=== PATIENT | female | born 1965 | race Caucasian/White ===

== ENCOUNTER 2023-10-18 11:45 | Emergency (ER) | payer BC ==
[2023-10-18] MEDS ORDERED: HYDROCODONE/APAP 7.5/325 MG TAB ONE (12:19)
[2023-10-18] MEDS ORDERED: KETOROLAC 30 MG/ML INJ ONE (12:19)
--- NOTE | 2023-10-18 13:13 | RAD REPORT ---
EXAM DESCRIPTION: RAD - Hip Right 2 View - 10/18/2023 12:42 pm CLINICAL HISTORY: Right hip pain FINDINGS: No fracture or dislocation is seen. If the patient continues to have symptoms to suggest an occult fracture then MRI would be recommended
--- NOTE | 2023-10-18 13:15 | RAD REPORT ---
EXAM DESCRIPTION: RAD - Knee Right 3 View - 10/18/2023 12:42 pm CLINICAL HISTORY: Right knee pain status post injury FINDINGS: No fracture or dislocation is seen. Mild to moderate osteoarthritis compartment. Prominent patellofemoral osteoarthritis
--- NOTE | 2023-10-18 13:19 | ER ---
Nurse's Notes [facility] Name: Vesna Ruelas Age: 58 yrs Sex: Female : 1965 Arrival Date: 10/18/2023 Time: 11:45 Bed 11 Private MD: Diagnosis: Pain in right knee Presentation: 10/17 12:12 Chief complaint: Patient states: she fell yesterday when taking her dogs out, and ap3 hyperextended her right knee. patient states she has a pain of 9/10 on the pain scale at this time. Coronavirus screen: At this time, the client does not indicate any symptoms associated with coronavirus-19. Ebola Screen: No symptoms or risks identified at this time. Initial Sepsis Screen: Does the patient meet any 2 criteria? No. Patient's initial sepsis screen is negative. Does the patient have a suspected source of infection? No. Patient's initial sepsis screen is negative. Risk Assessment: Do you want to hurt yourself or someone else? Patient reports no desire to harm self or others. Onset of symptoms was October 17, 2023. 12:12 Method Of Arrival: Wheelchair ap3 12:12 Acuity: SHIRA 4 ap3 Triage Assessment: 12:14 General: Appears uncomfortable, Behavior is calm, cooperative, appropriate for age. ap3 Pain: Complains of pain in right knee Pain currently is 9 out of 10 on a pain scale. Neuro: Level of Consciousness is awake, alert, obeys commands, Oriented to person, place, time, situation, Appropriate for age. Cardiovascular: Patient's skin is warm and dry. Respiratory: Airway is patent Respiratory effort is even, unlabored, Respiratory pattern is regular, symmetrical. Musculoskeletal: Reports pain in right knee. Historical: - Allergies: 12:13 No Known Allergies; ap3 - PMHx: 12:13 Irritable bowel syndrome; ap3 - Immunization history:: Client reports receiving the 2nd dose of the Covid vaccine, Flu vaccine is up to date. - Social history:: Smoking status: Patient denies any tobacco usage or history of. Screenin:14 [facility] ED Fall Risk Assessment (Adult) History of falling in the last 3 months, ap3 including since admission Yes- single mechanical fall (1 pt) Confusion or Disorientation No (0 pts) Intoxicated or Sedated No (0 pts) Impaired Gait Yes (1 pt) Mobility Assist Device Used No (0 pt) Altered Elimination No (0 pt) Score/Fall Risk Level 0 - 2 = Low Risk Oriented to surroundings, Maintained a safe environment, Educated pt \T\ family on fall prevention, incl call for assistance when getting out of bed, Assessed \T\ reinforced patient's understanding of fall precautions, Provided non-skid footwear, Hourly rounding (assess needs \T\ fall precautionary measures) done, Used ambulatory aids as needed (educated on \T\ assisted with), Used gait belt as appropriate. Abuse screen: Denies threats or abuse. Nutritional screening: No deficits noted. Tuberculosis screening: No symptoms or risk factors identified. Vital Signs: 12:12 BP 116 / 74; Pulse 74; Resp 17; Temp 98.8; Pulse Ox 100% ; Weight 95.25 kg; Height 5 ap3 ft. 10 in. ; Pain 9/10; 12:12 Body Mass Index 30.13 (95.25 kg, 177.8 cm) ap3 12:12 Pain Scale: Adult ap3 ED Course: 11:48 Patient arrived in ED. mg5 11:52 Yaneth Garcia FNP-C [facility]. kb 11:52 Anup Grullon MD is Attending Physician. kb 12:13 Triage completed. ap3 12:15 Arm band placed on right wrist. ap3 12:44 Knee Right 3 View XRAY In Process Unspecified. EDMS 12:44 Hip Right 2 View XRAY In Process Unspecified. EDMS Administered Medications: 12:48 Drug: Ketorolac IM 30 mg IM once Route: IM; Site: left vastus lateralis; ap3 12:48 Drug: Hydrocodone-Acetaminophen PO (7.5 mg-325 mg) 1 tabs PO once Route: PO; ap3 Outcome: 13:18 Discharge ordered by . kb 13:57 Patient left the ED. hb Signatures: Dispatcher [employer] EDMS Yaneth Garcia FNP-C FNP-Ckb Baxter, Heather RN RN Estela Presley RN RN ap3 Zeenat Lovell mg5
--- NOTE | 2023-10-18 13:19 | EDPHYS ---
Physician Documentation [facility] Name: Vesna Ruelas Age: 58 yrs Sex: Female : 1965 Arrival Date: 10/18/2023 Time: 11:45 Bed 11 Private MD: ED Physician Anup Grullon HPI: 10/17 13:37 This 58 yrs old Female presents to ER via Wheelchair with complaints of Knee Injury. kb 13:37 Pt is a 58 year old female who presents for right knee pain after the dogs ran into her kb yesterday. States her knee was hyperextended and she already has arthritis in the knee. Also reports right hip pain, which is chronic but worse since last night. Reports she has been ambulatory. Pt recently moved here from [place] and was getting injections into her back and right knee by pain management. Has not established specialists in this area yet. . Historical: - Allergies: 12:13 No Known Allergies; ap3 - PMHx: 12:13 Irritable bowel syndrome; ap3 - Immunization history:: Client reports receiving the 2nd dose of the Covid vaccine, Flu vaccine is up to date. - Social history:: Smoking status: Patient denies any tobacco usage or history of. ROS: 13:34 Constitutional: As per HPI kb Exam: 13:34 Constitutional: This is a well developed, well nourished patient who is awake, alert, kb and in no acute distress. Head/Face: Normocephalic, atraumatic. ENT: Moist Mucous membranes Cardiovascular: Regular rate Respiratory: Respirations even and unlabored. No increased work of breathing. Talking in full sentences Abdomen/GI: Soft, non-tender. No distention Skin: Warm, dry with normal turgor. Normal color. Neuro: Awake and alert, GCS 15, oriented to person, place, time, and situation. Moves all extremities. Normal gait. 13:34 Musculoskeletal/extremity: Extremities: grossly normal except: noted in the right hip and right knee: pain, ROM: intact in all extremities, Circulation is intact in all extremities. Sensation intact. Weight bearing: able to fully bear weight, Vital Signs: 12:12 BP 116 / 74; Pulse 74; Resp 17; Temp 98.8; Pulse Ox 100% ; Weight 95.25 kg; Height 5 ap3 ft. 10 in. ; Pain 9/10; 12:12 Body Mass Index 30.13 (95.25 kg, 177.8 cm) ap3 12:12 Pain Scale: Adult ap3 MDM: 11:52 Patient medically screened. kb 13:36 Differential diagnosis: fracture, sprain, strain, arthritis. Data reviewed: vital kb signs, nurses notes. Historians other than the Patient: Spouse/Significant Other: spouse. Counseling: I had a detailed discussion with the patient and/or guardian regarding the historical points, exam findings, and any diagnostic results supporting the discharge/admit diagnosis, radiology results, the need for outpatient follow up, a orthopedic surgeon, to return to the emergency department if symptoms worsen or persist or if there are any questions or concerns that arise at home. ED course: Pt states she has an appt to establish primary care next week and plans to get a referral to ortho then. . 10/17 12:01 Order name: Knee Right 3 View XRAY; Complete Time: 13:18 kb 10/17 12:01 Order name: Hip Right 2 View XRAY; Complete Time: 13:14 kb Administered Medications: 12:48 Drug: Ketorolac IM 30 mg IM once Route: IM; Site: left vastus lateralis; ap3 12:48 Drug: Hydrocodone-Acetaminophen PO (7.5 mg-325 mg) 1 tabs PO once Route: PO; ap3 Disposition: 14:19 Co-signature as Attending Physician, Anup Grullon MD I reviewed the patient's care rt provided by the Advanced Practice Provider and agree with the diagnosis and treatment plan. Disposition Summary: 10/18/23 13:18 Discharge Ordered Notes: Location: Home kb Condition: Stable kb Diagnosis - Pain in right knee kb Followup: kb - With: Emergency Department - When: As needed - Reason: Worsening of condition Followup: kb - With: Private Physician - When: 2 - 3 days - Reason: Recheck today's complaints, Continuance of care, Re-evaluation by your physician Discharge Instructions: - Discharge Summary Sheet kb - Acute Knee Pain, Adult, [id number] kb Forms: - Medication Reconciliation Form kb - Antibiotic Education kb - Prescription Opioid Use kb - Patient Portal Instructions kb - Leadership Thank You Letter kb Prescriptions: - Diclofenac Sodium 75 mg Oral tablet, delayed release (enteric coated) - take 1 tablet ORAL route 2 times per day As needed; 30 tablet; Refills: 0, kb Product Selection Permitted - orphenadrine citrate 100 mg Oral Tablet Sustained Release - take 1 tablet ORAL route 2 times per day As needed; 20 tablet; Refills: 0, kb Product Selection Permitted Signatures: Dispatcher [employer] Yaneth Tom, Estela Nguyễn, RN RN ap3 Anup Grullon MD MD rt
[2023-10-18 14:21] VITALS: BP 116/74; TEMP 98.8; O2SAT 100
== END 2023-10-18 13:57 | disposition home or self-care (01) ==
LOC: ER 11:45
DX: M25.561 Pain in right knee (principal); M25.551 Pain in right hip
CPT/HCPCS: 96372; 99284

== ENCOUNTER 2024-02-02 11:50 | Emergency (ER) | payer BC ==
--- OUTSIDE RECORDS SUMMARY | 2024-02-02 11:53 | XMS REPORT | Continuity of Care Document ---
Author Name Unknown Address [address] [facility] [address] [place] [address] [facility] thconnect Address [address] [facility] [place] [address] Care Team Providers Care Order Department Supervisor Name Role Phone No , Pcp Primary Care Physician Unavailab KAYLA Finch Attending Clinician Unavailab KAYLA Finch Attending Clinician Unavailab LUCILA Elliott Attending Clinician Unavailable LUCILA MCCRARY Attending Clinician Unavailable NIKUNJ ZALDIVAR Attending Clinician UnavailNIKUNJ Jackson Attending Clinician UnavailNikunj Jackson MD Attending Clinician [phone] Doctor Unassigned, [place] Attending Clinician U zachary Shaver PT, Julia Attending Clinician Un available Alice Perez PT Attending Clinician Unavailbritton Thakur, [facility] Main Attending Clinician Unavailbritton Carranza CIVIL DESIGNER, Kayla Attending Clinician [phone] DEONDRE HERRERA Attending Clinician Unavailable Deondre Herrera MD Attending Clinician [phone] VISHNU ROSALES Attending Clinician Unavailable Sarah Bernal Attending Clinician Payers Payer Name Policy Type Policy Number Effective Date Expirati on Date Source [facility] [id number] 2023 00:00:00 [employer] [id number] 2023 00:00:00 Problems Condition Name Condition Details Condition Category Status Onset Date Resolution Date Last Treatment Date Treating Clinician Comments Source Pre-operat lyle clearance Pre-operat lyle clearance Disease Active 11-13 00:00: 00 [facility] Essential hypertensi on Essential hypertensi on Disease Active 11-13 00:00: 00 [facility] Allergies, Adverse Reactions, Alerts Allergy Name Allergy Type Status Severity Reaction(s) Onset Date Inactive Date Treating Clinician Comments Source NO KNOWN ALLERGIE S Drug Class Active [facility] Social History Social Habit Start Date Stop Date Quantity Comments Source [facility] Alcoholic beverage intake 2024-01-29 00:00:00 2024-01-29 00:00:00 Current drinker of alcohol (finding) [facility] Tobacco use and exposure 2023-10-21 00:00:00 2023-10-21 00:00:00 Smokeless tobacco non-user [facility] History of Social function 2023-10-21 00:00:00 2023-10-21 00:00:00 [facility] Alcohol Comment 2023-10-21 00:00:00 2023-10-21 00:00:00 socially [facility] Sex assigned at 1965 00:00:00 1965 00:00:00 [facility] Smoking Status Start Date Stop Date Source Tobacco smoking consumption unknown [facility] Never smoked tobacco [facility] Medications Ordered Medication Name Filled Medication Name Start Date Stop Date Current Medication? Ordering Clinician Indication Dosage Frequency Signature (SIG) Comments Components Source GABAPENTIN 100 mg capsule 2023-02 00:00: 00 Yes [id number] 05 TAKE 1 CAPSULE BY MOUTH IN THE MORNING AND AT NOON AND IN THE EVENING [facility] GABAPENTIN 100 mg capsule 2023-02 00:00: 00 01-18 00:00 :00 No [id number] 05 TAKE 1 CAPSULE BY MOUTH IN THE MORNING AND AT NOON AND IN THE EVENING [facility] HYDROcodone -acetaminop hen 5-325 mg tablet 2023-02-19 00:00: 00 01-13 05:59 :00 Yes [id number] 1{tbl} Take 1 tablet by mouth every 6 (six) hours as needed for Pain (scale 4-6) for up to 7 days. Indication s: acute pain [facility] HYDROcodone -acetaminop hen 10-325 mg tablet 2023-02- 00:00: 00 01-01 05:59 :00 No 4647 1{tbl} Take 1 tablet by mouth every 6 (six) hours as needed for Pain (scale 4-6) for up to 7 days. Indication s: acute pain [facility] gabapentin 100 mg capsule 2023-02- 00:00: 00 01-17 00:00 :00 No 100mg Take 1 capsule by mouth in the morning and 1 capsule at noon and 1 capsule in the evening. [facility] gabapentin (NEURONTIN) capsule 100 mg 2023-02 14:45: 00 12-18 13:48 :00 No [id number] 100mg 100 mg, Oral, ONCE, 1 dose, On Fri12/19/23 at 0945, Routine [facility] HYDROcodone -acetaminop hen 10-325 mg tablet 2023-02 0-30 00:00: 00 12-24 05:59 :00 No 4647 1{tbl} Take 1 tablet by mouth every 6 (six) hours as needed for Pain (scale 4-6) for up to 7 days. Indication s: acute pain [facility] doxepin 25 mg capsule 2023-02 0-07 00:00: 00 01-28 00:00 :00 No [id number] 25mg Take 1 capsule by mouth at bedtime. [facility] acetaminoph en-codeine 300-30 mg tablet 11-13 00:00: 01-28 00:00 :00 No 4647 1{tbl} Take 1 tablet by mouth every 4 (four) hours as needed for Pain (scale 7-10). Indication s: acute pain, Right knee pain [facility] doxepin 25 mg capsule 10-20 00:00: 00 11-13 00:00 :00 No [id number] 25mg Take 1 capsule by mouth at bedtime. [facility] lidocaine 5 % ointment 10-20 00:00: 00 11-13 00:00 :00 No [id number] Apply to area(s) 2 (two) times daily. [facility] acetaminoph en-codeine 300-30 mg tablet 10-20 00:00: 00 10-28 04:59 :00 No 4647 1{tbl} Take 1 tablet by mouth every 4 (four) hours as needed for Pain (scale 7-10) for up to 7 days. Indication s: acute pain, Right knee pain [facility] diclofenac 75 mg EC tablet 10-17 00:00: 00 11-13 00:00 :00 No TAKE 1 TABLET BY MOUTH TWICE DAILY NEEDED [facility] orphenadrin e 100 mg SR tablet 10-17 00:00: 00 11-13 00:00 :00 No TAKE 1 TABLET BY MOUTH TWICE DAILY NEEDED [facility] clonazePAM 2 mg tablet 09-10 00:00: 00 Yes Take 1 tab po BID prn severe anxiety. Do not take with pain medication .. Indication s: panic disorder [facility] venlafaxine XR 150 mg 24 hr capsule 09-07 00:00: 00 Yes 150mg Take 1 capsule by mouth. [facility] lisinopriL- hydrochloro thiazide 10-12.5 mg per tablet 08-17 00:00: 00 Yes 1{tbl} Take 1 tablet by mouth every morning. [facility] colesevelam 625 mg tablet 08-14 00:00: 00 02-11 05:59 :00 No 1250mg Take 2 tablets by mouth. [facility] sodium,pota ssium,mag sulfates 17.5-3.13-1 .6 gram 06-18 00:00: 00 10-20 00:00 :00 No As directed as physician. [facility] methylPREDN ISolone 4 mg tablets 4-30 00:00: 00 10-20 00:00 :00 No Follow package directions .. [facility] oxyBUTYnin chloride 5 mg tablet 30 00:00: 00 10-20 00:00 :00 No 5mg Take 1 tablet by mouth. [facility] dicyclomine 20 mg tablet 19 00:00: 00 10-20 00:00 :00 No 20mg Take 1 tablet by mouth. [facility] Immunizations Ordered Immunization Name Filled Immunization Name Date Status Comments Source Flu Injectable MDCK Pres-Free (FLUCELVAX) 2023-10-21 00:00:00 Completed Flu Injectable MDCK Pres-Free (FLUCELVAX) 2023-10-21 00:00:00 Completed Flu Injectable MDCK Pres-Free (FLUCELVAX) 2023-10-21 00:00:00 Completed Flu Injectable MDCK Pres-Free (FLUCELVAX) 2023-10-21 00:00:00 Completed Flu Injectable MDCK Pres-Free (FLUCELVAX) 2023-10-21 00:00:00 Completed Flu Injectable MDCK Pres-Free (FLUCELVAX) 2023-10-21 00:00:00 Completed Influenza Virus Vaccine Quad IM, Preserv and ABX Free 6 MO-64 YRS (FLUCELVAX) 2022-11-03 00:00:00 Completed Influenza Virus Vaccine Quad IM, Preserv and ABX Free 6 MO-64 YRS (FLUCELVAX) 2022-11-03 00:00:00 Completed Influenza Virus Vaccine Quad IM, Preserv and ABX Free 6 MO-64 YRS (FLUCELVAX) 2022-11-03 00:00:00 Completed Influenza Virus Vaccine Quad IM, Preserv and ABX Free 6 MO-64 YRS (FLUCELVAX) 2022-11-03 00:00:00 Completed Influenza Virus Vaccine Quad IM, Preserv and ABX Free 6 MO-64 YRS (FLUCELVAX) 2022-11-03 00:00:00 Completed Influenza Virus Vaccine Quad IM, Preserv and ABX Free 6 MO-64 YRS (FLUCELVAX) 2022-11-03 00:00:00 Completed Influenza Virus Vaccine Recomb Quad IM, Preserv and ABX Free 18-64 YRS 2021-12-12 00:00:00 Completed Influenza Virus Vaccine Recomb Quad IM, Preserv and ABX Free 18-64 YRS 2021-12-12 00:00:00 Completed Influenza Virus Vaccine Recomb Quad IM, Preserv and ABX Free 18-64 YRS 2021-12-12 00:00:00 Completed Influenza Virus Vaccine Recomb Quad IM, Preserv and ABX Free 18-64 YRS 2021-12-12 00:00:00 Completed Influenza Virus Vaccine Recomb Quad IM, Preserv and ABX Free 18-64 YRS 2021-12-12 00:00:00 Completed Influenza Virus Vaccine Recomb Quad IM, Preserv and ABX Free 18-64 YRS 2021-12-12 00:00:00 Completed Influenza Virus Vaccine Quad .5 mL IM 6+ MO (FLUZONE/FLULAVAL/F LUARIX) 2020-11-17 00:00:00 Completed Influenza Virus Vaccine Quad .5 mL IM 6+ MO (FLUZONE/FLULAVAL/F LUARIX) 2020-11-17 00:00:00 Completed Influenza Virus Vaccine Quad .5 mL IM 6+ MO (FLUZONE/FLULAVAL/F LUARIX) 2020-11-17 00:00:00 Completed Influenza Virus Vaccine Quad .5 mL IM 6+ MO (FLUZONE/FLULAVAL/F LUARIX) 2020-11-17 00:00:00 Completed Influenza Virus Vaccine Quad .5 mL IM 6+ MO (FLUZONE/FLULAVAL/F LUARIX) 2020-11-17 00:00:00 Completed Influenza Virus Vaccine Quad .5 mL IM 6+ MO (FLUZONE/FLULAVAL/F LUARIX) 2020-11-17 00:00:00 Completed TDAP 2018-03-30 00:00:00 Completed TDAP 2018-03-30 00:00:00 Completed TDAP 2018-03-30 00:00:00 Completed TDAP 2018-03-30 00:00:00 Completed TDAP 2018-03-30 00:00:00 Completed TDAP 2018-03-30 00:00:00 Completed [facility] Influenza, split virus, trivalent, PF (AFLURIA/FLUARIX/FL ULAVAL/FLUZONE) 2010-12-08 00:00:00 Completed Influenza, split virus, trivalent, PF (AFLURIA/FLUARIX/FL ULAVAL/FLUZONE) 2010-12-08 00:00:00 Completed Influenza, split virus, trivalent, PF (AFLURIA/FLUARIX/FL ULAVAL/FLUZONE) 2010-12-08 00:00:00 Completed Influenza, split virus, trivalent, PF (AFLURIA/FLUARIX/FL ULAVAL/FLUZONE) 2010-12-08 00:00:00 Completed Influenza, split virus, trivalent, PF (AFLURIA/FLUARIX/FL ULAVAL/FLUZONE) 2010-12-08 00:00:00 Completed Influenza, split virus, trivalent, PF (AFLURIA/FLUARIX/FL ULAVAL/FLUZONE) 2010-12-08 00:00:00 Completed TDAP Unknown Completed [facility] Influenza Virus Vaccine Recomb Quad IM, Preserv and ABX Free 18-64 YRS Unknown Completed [facility] Influenza Virus Vaccine Quad IM, Preserv and ABX Free 6 MO-64 YRS (FLUCELVAX) Unknown Completed [facility] Influenza, split virus, trivalent, PF (AFLURIA/FLUARIX/FL ULAVAL/FLUZONE) Unknown [facility] Influenza Virus Vaccine Quad .5 mL IM 6+ MO (FLUZONE/FLULAVAL/F LUARIX) Unknown Completed [facility] Flu Injectable MDCK Pres-Free (FLUCELVAX) Unknown Completed [facility] TDAP Unknown Completed [facility] Influenza Virus Vaccine Recomb Quad IM, Preserv and ABX Free 18-64 YRS Unknown Completed [facility] Influenza Virus Vaccine Quad IM, Preserv and ABX Free 6 MO-64 YRS (FLUCELVAX) Unknown Completed [facility] Influenza, split virus, trivalent, PF (AFLURIA/FLUARIX/FL ULAVAL/FLUZONE) Unknown Completed [facility] Influenza Virus Vaccine Quad .5 mL IM 6+ MO (FLUZONE/FLULAVAL/F LUARIX) Unknown Completed [facility] Flu Injectable MDCK Pres-Free (FLUCELVAX) Unknown Completed [facility] TDAP Unknown Completed [facility] Influenza Virus Vaccine Recomb Quad IM, Preserv and ABX Free 18-64 YRS Unknown Completed [facility] Influenza Virus Vaccine Quad IM, Preserv and ABX Free 6 MO-64 YRS (FLUCELVAX) Unknown Completed [facility] Influenza, split virus, trivalent, PF (AFLURIA/FLUARIX/FL ULAVAL/FLUZONE) Unknown Completed [facility] Influenza Virus Vaccine Quad .5 mL IM 6+ MO (FLUZONE/FLULAVAL/F LUARIX) Unknown Completed [facility] Flu Injectable MDCK Pres-Free (FLUCELVAX) Unknown Completed [facility] TDAP Unknown Completed [facility] Influenza Virus Vaccine Recomb Quad IM, Preserv and ABX Free 18-64 YRS Unknown Completed [facility] Influenza Virus Vaccine Quad IM, Preserv and ABX Free 6 MO-64 YRS (FLUCELVAX) Unknown Completed [facility] Influenza, split virus, trivalent, PF (AFLURIA/FLUARIX/FL ULAVAL/FLUZONE) Unknown Completed [facility] Influenza Virus Vaccine Quad .5 mL IM 6+ MO (FLUZONE/FLULAVAL/F LUARIX) Unknown Completed [facility] Flu Injectable MDCK Pres-Free (FLUCELVAX) Unknown Completed [facility] TDAP Unknown Completed [facility] Influenza Virus Vaccine Recomb Quad IM, Preserv and ABX Free 18-64 YRS Unknown Completed [facility] Influenza Virus Vaccine Quad IM, Preserv and ABX Free 6 MO-64 YRS (FLUCELVAX) Unknown Completed [facility] Influenza, split virus, trivalent, PF (AFLURIA/FLUARIX/FL ULAVAL/FLUZONE) Unknown Completed [facility] Influenza Virus Vaccine Quad .5 mL IM 6+ MO (FLUZONE/FLULAVAL/F LUARIX) Unknown Completed [facility] Flu Injectable MDCK Pres-Free (FLUCELVAX) Unknown Completed [facility] Vital Signs Vital Name Observation Time Observation Value Comments Yuri henderson Systolic blood pressure 2024-01-29 14:43:00 109 mm[Hg] [facility] Diastolic blood pressure 2024-01-29 14:43:00 81 mm[Hg] [facility] Heart rate 2024-01-29 14:43:00 76 /min [facility] Respiratory rate 2024-01-29 14:43:00 18 /min [facility] Body height 2024-01-29 14:43:00 175.3 cm [facility] Body weight 2024-01-29 14:43:00 92.08 kg [facility] BMI 2024-01-29 14:43:00 29.98 kg/m2 [facility] Oxygen saturation in Arterial blood by Pulse oximetry 2024-01-29 14:43:00 99 /min [facility] Systolic blood pressure 2024-01-01 20:45:00 112 mm[Hg] [facility] Diastolic blood pressure 2024-01-01 20:45:00 74 mm[Hg] [facility] Heart rate 2024-01-01 20:45:00 70 /min [facility] Body height 2024-01-01 20:45:00 175.3 cm [facility] Body weight 2024-01-01 20:45:00 94.802 kg [facility] BMI 2024-01-01 20:45:00 30.86 kg/m2 [facility] Systolic blood pressure 2023-12-25 22:06:00 109 mm[Hg] [facility] Diastolic blood pressure 2023-12-25 22:06:00 75 mm[Hg] [facility] Heart rate 2023-12-25 22:06:00 76 /min [facility] Body height 2023-12-25 22:06:00 175.3 cm [facility] Body weight 2023-12-25 22:06:00 95.255 kg [facility] BMI 2023-12-25 22:06:00 31.01 kg/m2 [facility] Oxygen saturation in Arterial blood by Pulse oximetry 2023-12-25 22:06:00 99 /min [facility] Systolic blood pressure 2023-12-19 13:21:00 109 mm[Hg] [facility] Diastolic blood pressure 2023-12-19 13:21:00 75 mm[Hg] [facility] Heart rate 2023-12-19 13:21:00 76 /min [facility] Body height 2023-12-19 13:21:00 175.3 cm [facility] Body weight 2023-12-19 13:21:00 92.534 kg [facility] BMI 2023-12-19 13:21:00 30.13 kg/m2 [facility] Body height 2023-11-20 18:08:00 177.8 cm [facility] Body weight 2023-11-20 18:08:00 94.983 kg [facility] BMI 2023-11-20 18:08:00 30.05 kg/m2 [facility] Systolic blood pressure 2023-11-14 13:08:00 124 mm[Hg] [facility] Diastolic blood pressure 2023-11-14 13:08:00 72 mm[Hg] [facility] Heart rate 2023-11-14 13:08:00 70 /min [facility] Body temperature 2023-11-14 13:08:00 37.06 Stacey [facility] Respiratory rate 2023-11-14 13:08:00 20 /min [facility] Body height 2023-11-14 13:08:00 175.3 cm [facility] Body weight 2023-11-14 13:08:00 95.255 kg [facility] BMI 2023-11-14 13:08:00 31.01 kg/m2 [facility] Oxygen saturation in Arterial blood by Pulse oximetry 2023-11-14 13:08:00 99 /min [facility] Body height 2023-10-27 20:35:00 175.3 cm [facility] Body weight 2023-10-27 20:35:00 95.346 kg [facility] BMI 2023-10-27 20:35:00 31.04 kg/m2 [facility] Systolic blood pressure 2023-10-21 18:15:00 122 mm[Hg] [facility] Diastolic blood pressure 2023-10-21 18:15:00 76 mm[Hg] [facility] Heart rate 2023-10-21 18:15:00 70 /min [facility] Body temperature 2023-10-21 18:15:00 36.78 Stacey [facility] Respiratory rate 2023-10-21 18:15:00 20 /min [facility] Body height 2023-10-21 18:15:00 177.8 cm [facility] Body weight 2023-10-21 18:15:00 95.89 kg [facility] BMI 2023-10-21 18:15:00 30.33 kg/m2 [facility] Oxygen saturation in Arterial blood by Pulse oximetry 2023-10-21 18:15:00 99 /min [facility] Body height 2023-09-30 20:56:00 177.8 cm [facility] ealth Procedures Procedure Date / Time Performed Performing Clinicia n Source XR CHEST 1 VW 2023-12-15 15:41:36 [facility] RIGHT 2023-10-27 20:45:53 Nikunj Zaldivar [facility] FLU VACC ([id number]), 6 MO-64 YRS, .5ML, IM, TIV (FLUCELVAX) 2023-10-21 18:50:19 Kayla Carranza [facility] Encounters Start Date/Time End Date/Time Encounter Type Admission Type Attending Clinicians Care Facility Care Department Encounter ID Source 2024-04-19 08:30:00 2024-04-19 08:30:00 Outpatient R KAYLA CARRANZA [facility]GE[facility]U [facility] [id number] [facility] 2024-02-04 00:00:00 2024-02-04 00:00:00 Outpatient R NIKUNJ ZALDIVAR [facility] [id number] [facility] 2024-01-30 07:45:00 2024-01-30 07:45:00 Outpatient R [facility] [id number] [facility] 2024-01-29 09:30:00 2024-01-29 09:30:00 Outpatient R NIKUNJ ZALDIVAR [facility] [id number] [facility] 2024-01-29 08:30:00 2024-01-29 08:45:00 Office Visit Nikunj Zaldivar [facility] MEDICAL OFFICE BUILDING [id number] [id number] [id number] [facility] 2024-01-26 00:00:00 2024-01-26 14:32:24 Letter (Out) Nikunj Zaldivar [facility] MEDICAL OFFICE BUILDING [id number] 350.1.13.10 4.2.7.2.686 [id number] [facility] 2024-01-26 00:00:00 2024-01-26 14:29:59 Telephone Nikunj Zaldivar COUNT INCLUDES THE [facility] MEDICAL OFFICE BUILDING [id number] 350.1.13.10 4.2.7.2.686 [id number] [facility] 2024-01-22 08:15:00 2024-01-22 08:15:00 Outpatient R NIKUNJ ZALDIVAR [facility] [id number] [facility] 2024-01-19 00:00:00 2024-01-19 15:42:38 Refill Nikunj Zaldivar [facility] MEDICAL OFFICE BUILDING [id number] 350.1.13.10 4.2.7.2.686 [id number] [facility] 2024-01-17 00:00:00 2024-01-18 10:06:14 Reftravis Nikunj Zaldivar [facility] MEDICAL OFFICE BUILDING 1.84.114 350.1.13.10 4.2.7.2.686 [id number] [facility] 2023-12-17 00:00:00 2024-01-17 18:18:47 Patient Secure Msg Doctor Unassigned, [place] Doctor Unassigned, [place] [facility] 1.84.114 350.1.13.10 4.2.7.2.686 [id number] [facility] 2024-01-04 00:00:00 2024-01-09 09:16:25 Refill Nikunj Zaldivar [facility] MEDICAL OFFICE BUILDING 1.840.114 350.1.13.10 4.2.7.2.686 [id number] [facility] 2024-01-06 16:00:00 2024-01-06 16:00:00 Outpatient R NIKUNJ ZALDIVAR [facility] [id number] [facility] 2024-01-06 00:00:00 2024-01-06 15:21:02 Patient Secure Msg Nikunj Zaldivar [facility] MEDICAL OFFICE BUILDING 1.840.114 350.1.13.10 4.2.7.2.686 [id number] [facility] 2024-01-04 00:00:00 2024-01-05 09:06:14 Telephone Nikunj Zaldivar [facility] MEDICAL OFFICE BUILDING 1.840.114 350.1.13.10 4.2.7.2.686 [id number] [facility] 2023-12-25 00:00:00 2024-01-02 15:23:06 Refill Nikunj Zaldivar COUNT INCLUDES THE [facility] [id number] 350.1.13.10 4.2.7.2.686 [id number] [facility] 2024-01-01 14:45:00 2024-01-01 14:57:13 Outpatient R NIKUNJ ZALDIVAR [facility] [id number] [facility] 2024-01-01 14:45:00 2024-01-01 14:57:13 Office Visit Nikunj Zaldivar COUNT INCLUDES THE [facility] MEDICAL OFFICE BUILDING [id number] 350.1.13.10 4.2.7.2.686 [id number] [facility] 2023-12-17 00:00:00 2023-12-31 08:56:39 Telephone Nikunj Zaldivar COUNT INCLUDES THE [facility] MEDICAL OFFICE BUILDING [id number] 350.1.13.10 4.2.7.2.686 [id number] [facility] 2023-12-30 15:15:00 2023-12-30 16:06:59 Ancillary Visit Julia Kim Craig L Wilson Leonard, Meisha [facility] 1..840.114 350.1.13.10 4.2.7.2.686 [id number] [facility] 2023-12-25 16:15:00 2023-12-25 16:24:38 Outpatient R NIKUNJ ZALDIVAR [facility] [id number] [facility] 2023-12-25 16:15:00 2023-12-25 16:24:38 Office Visit Nikunj Zaldivar [facility] [id number] 350.1.13.10 4.2.7.2.686 [id number] [facility] 2023-12-20 00:00:00 2023-12-22 16:56:49 Patient Secure Msg Nikunj Zaldivar [facility] MEDICAL OFFICE BUILDING [id number] 350.1.13.10 4.2.7.2.686 [id number] [facility] 2023-12-19 08:26:45 2023-12-19 23:59:00 Outpatient O NIKUNJ ZALDIVAR [facility] [id number] [facility] 2023-12-19 08:26:45 2023-12-19 23:59:00 Hospital Encounter Nikunj Zaldivar [facility] MEDICAL OFFICE BUILDING [id number] 350.1.13.10 4.2.7.2.686 [id number] [facility] 2023-12-19 08:00:00 2023-12-19 08:56:30 Office Visit Nikunj Zaldivar [facility] [facility] MEDICAL OFFICE BUILDING 1.2.840.114 350.1.13.10 4.2.7.2.686 [id number] [facility] 2023-12-18 00:00:00 2023-12-18 15:04:26 Telephone Nikunj Zaldivar [facility] MEDICAL OFFICE BUILDING 1.2.840.114 350.1.13.10 4.2.7.2.686 [id number] [facility] 2023-12-18 10:15:00 2023-12-18 11:35:37 Outpatient R NIKUNJ ZALDIVAR [facility] [id number] [facility] 2023-12-18 10:15:00 2023-12-18 11:35:37 Ancillary Visit Alice Perez Craig L Johanson, Dara [facility] 1..840.114 350.1.13.10 4.2.7.2.686 [id number] [facility] 2023-12-17 16:00:00 2023-12-17 16:00:00 Out[facility] [id number] [facility] 2023-12-17 00:00:00 2023-12-17 13:27:26 Telephone Nikunj Zaldivar COUNT INCLUDES THE [facility] MEDICAL OFFICE BUILDING 1.840.114 350.1.13.10 4.2.7.2.686 [id number] [facility] 2023-12-17 00:00:00 2023-12-17 00:00:00 Outpatient R NIKUNJ ZALDIVAR [facility] [id number] [facility] 2023-12-15 10:08:32 2023-12-15 23:59:00 Outpatient R NIKUNJ ZALDIVAR [facility] [id number] [facility] 2023-12-15 10:08:32 2023-12-15 23:59:00 Hospital Encounter Nikunj Zaldivar [facility] 1.840.114 350.1.13.10 4.2.7.2.686 [id number] [facility] 2023-12-15 00:00:00 2023-12-15 13:45:17 Telephone Nikunj Zaldivar COUNT INCLUDES THE [facility] MEDICAL OFFICE BUILDING 1..840.114 350.1.13.10 4.2.7.2.686 [id number] [facility] 2023-12-15 11:15:00 2023-12-15 11:30:00 Slip Feeder Visit Pob, Adc Lab Main Nikunj Zaldivar Pob, Adc Lab Main [facility] BUILDING 1..114 350.1.13.10 4.2.7.2.686 [id number] [facility] 2023-12-15 10:00:00 2023-12-15 10:07:00 Hospital Encounter Nikunj Zaldivar [facility] 1.114 350.1.13.10 4.2.7.2.686 [id number] [facility] 2023-12-12 10:15:00 2023-12-12 11:00:00 Ancillary Visit Alice Perez Craig L Johanson Alice [facility] BUILDING 1.114 350.1.13.10 4.2.7.2.686 [id number] [facility] 2023-12-08 16:30:00 2023-12-08 16:30:00 Outpatient LUCILA KHAN [facility] [id number] [facility] 2023-11-05 00:00:00 2023-12-06 18:21:38 Patient Secure Msg Doctor Unassigned, [place] Doctor Unassigned, [place] [facility] 1.114 350.1.13.10 4.2.7.2.686 [id number] [facility] 2023-11-28 00:00:00 2023-12-01 08:29:32 Patient Secure Msg Nikunj Zaldivar COUNT INCLUDES THE [facility] 1.84.114 350.1.13.10 4.2.7.2.686 [id number] [facility] 2023-11-22 00:00:00 2023-11-26 07:34:13 RefKayla Phoenix [facility] BUILDING 1.2.840.114 350.1.13.10 4.2.7.2.686 [id number] [facility] 2023-11-25 00:00:00 2023-11-25 09:11:35 Telephone Kendrick [facility]unj [facility] 1.2.840.114 350.1.13.10 4.2.7.2.686 [id number] [facility] 2023-11-21 00:00:00 2023-11-24 10:21:36 Telephone Kendrick [facility]unj Villar[facility] MEDICAL OFFICE BUILDING 1.2.840.114 350.1.13.10 4.2.7.2.686 [id number] [facility] 2023-11-23 00:00:00 2023-11-24 09:17:55 Patient Secure Kayla Thomas [facility] BUILDING 1.2.840.114 350.1.13.10 4.2.7.2.686 [id number] [facility] 2023-11-21 00:00:00 2023-11-21 10:16:38 Telephone [facility]un[facility]aldiv[facility] BU[facility] 1.2.840.114 350.1.13.10 4.2.7.2.686 [id number] [facility] 2023-11-20 13:00:00 2023-11-20 13:58:43 Outpatient R NIKUNJ ZALDIVAR [facility] [id number] [facility] 2023-11-20 13:00:00 2023-11-20 13:58:43 Office Visit Nikunj Zaldivar [facility] BUILDING 1.2.840.114 350.1.13.10 4.2.7.2.686 [id number] [facility] 2023-11-13 00:00:00 2023-11-14 16:56:18 Refill Kayla Carranza [facility] NAL BUILDING 1.2.840.114 350.1.13.10 4.2.7.2.686 [id number] [facility] 2023-11-14 08:00:00 2023-11-14 08:47:13 Outpatient R [facility] [id number] [facility] 2023-11-14 08:00:00 2023-11-14 08:47:13 [facility] 1..840.114 350.1.13.10 4.2.7.2.686 [id number] [facility] 2023-10-21 00:00:00 2023-10-31 14:50:42 Telephone Kayla Carranza [facility] BUILDING 1..840.114 350.1.13.10 4.2.7.2.686 [id number] [facility] 2023-10-29 00:00:00 2023-10-30 11:36:38 Patient Secure Msg Nikunj [facility]aldivar [facility] 1.2.840.114 350.1.13.10 4.2.7.2.686 [id number] [facility] 2023-10-27 15:36:42 2023-10-27 23:59:00 Hospital Encounter Nikunj Zaldivar [facility] MEDICAL OFFICE BUILDING 1.2.840.114 350.1.13.10 4.2.7.2.686 [id number] [facility] 2023-10-27 15:36:42 2023-10-27 23:59:00 Outpatient R NIKUNJ ZALDIVAR [facility] [id number] [facility] 2023-10-27 15:30:00 2023-10-27 16:02:48 Office Visit Nikunj Zaldivar [facility] BUILD[facility] 1.2.840.114 350.1.13.10 4.2.7.2.686 [id number] [facility] 2023-10-21 13:00:00 2023-10-21 14:07:44 Office Visit Kayla Carranza [facility] 1.2.840.114 350.1.13.10 4.2.7.2.686 [id number] [facility] 2023-10-21 13:00:00 2023-10-21 14:07:44 Outpatient KAYLA DOE [facility] [id number] [facility] 2023-09-30 15:40:00 2023-09-30 17:46:05 Outpatient [facility] [id number] [facility] 2023-09-30 15:00:00 2023-09-30 17:01:14 Office Visit Sarah Ontiveros MD Physician s [facility] [place] 1.2.840.114 350.1.13.58 9.2.7.2.[id number] [facility] Results Test Description Test Time Test Comments Results Resul t Comments Source XR CHEST 1 VW 2023-12-15 17:09:21 Study: Single view chest. Ordering Physician: ?NIKUNJ ZALDIVAR Date: 12/15/2023 10:08 AM History:surgery COMPARISON: None. Findings: Single frontal view chest demonstrates a normal heart size. Thelungs are clear without infiltrate, pleural effusion or pneumothorax. Noacute osseous abnormality is identified. [facility] XR KNEE 3 VW RIGHT 2023-10-28 13:14:04 XR KNEE 3 VW RIGHT INDICATION: RT knee pain 7 COMPARISON: None [facility]
[2024-02-02] MEDS ORDERED: HYDROCODONE/APAP 7.5/325 MG TAB ONE (12:11)
[2024-02-02] MEDS ORDERED: LIDOCAINE 1% MPF 5 ML VIAL ONE (14:08)
[2024-02-02] MEDS ORDERED: BUPIVACAINE 0.5% PF 10 ML VIAL ONE (14:09)
[2024-02-02] MEDS ORDERED: AMOX/K CLAV 875 MG TAB ONE (14:28)
[2024-02-02] MEDS ORDERED: KETOROLAC 30 MG/ML INJ ONE (14:29)
--- NOTE | 2024-02-02 14:36 | RAD REPORT ---
EXAM: XR Hand Left 3 View HISTORY: [facility] MAIN ANIMAL BITE Bed: COMPARISON: None TECHNIQUE: 3 radiographic views of the RIGHT hand submitted. FINDINGS: No evidence of acute fracture or dislocation. Joint alignment is maintained. Soft tissue s welling/irregularity along the lateral aspect of the hand, with overlying dressing.. No significant degenerative changes are present. IMPRESSION: No significant bone or joint abnormality. Soft tissue abnormalities laterally as above.
--- NOTE | 2024-02-02 15:15 | EDPHYS ---
Physician Documentation [facility] Name: Vesna Ruelas Age: 58 yrs Sex: Female : 1965 Arrival Date: 02/02/2024 Time: 11:50 Bed 10 Private MD: ED Physician Jason Chan HPI: 02/01 12:10 This 58 yrs old Female presents to ER via Unassigned with complaints of Dog Bite. cp 12:10 The patient was bitten on the dorsal side of left hand, by a dog, while trying to stop cp animals from fighting, at home. Onset: The symptoms/episode began/occurred just prior to arrival. 12:10 Secondary to the bite the patient reports a laceration, that is deep, irregular shaped. cp Associated signs and symptoms: The patient has no apparent associated signs or symptoms, Pertinent negatives: motor deficit, numbness distal to wound. Historical: - Allergies: 12:12 No Known Allergies; cm10 - PMHx: 12:12 Irritable bowel syndrome; Hypertensive disorder; cm10 - PSHx: 12:12 KNEE REPLACEMENT; cm10 - Immunization history:: Adult Immunizations up to date, Last tetanus immunization: unknown. - Infectious Disease History:: CDIFF, . - Social history:: Smoking status: Patient denies any tobacco usage or history of. ROS: 12:15 MS/extremity: Positive for bite, pain, swelling, tenderness, of the dorsum of left cp hand, Negative for decreased range of motion, 12:15 Cardiovascular: Negative for chest pain, cp 12:15 Abdomen/GI: Negative for abdominal pain, vomiting, diarrhea, constipation, 12:15 Neuro: Negative for altered mental status, headache, numbness, weakness, 12:15 All other systems are negative, cp Exam: 12:20 Constitutional: The patient appears in no acute distress, alert, awake, non-toxic, well cp developed, well nourished, uncomfortable, 12:20 Head/Face: Normocephalic, atraumatic. cp 12:20 Chest/axilla: Inspection: normal, 12:20 Cardiovascular: Rate: normal, Pulses: Pulses are 2+ in left radial artery. 12:20 Respiratory: the patient does not display signs of respiratory distress, Respirations: normal, no use of accessory muscles, no retractions, labored breathing, is not present, 12:20 Abdomen/GI: Inspection: abdomen appears normal, 12:20 Back: pain, is absent, 12:20 Musculoskeletal/extremity: Extremities: noted in the dorsum of left hand: laceration, pain, swelling, tenderness, mild bleeding, There is no evidence of decreased ROM, tendon injury, ROM: full active range of motion, in the left hand, Perfusion: the extremity is normally perfused throughout, the left hand Sensation intact. Tendon exam: specific tendon testing normal through active and passive range of motion 12:20 Neuro: Orientation: to person, place \T\ time. Mentation: is normal, Vital Signs: 12:10 BP 120 / 73; Pulse 73; Resp 16; Temp 97.5; Pulse Ox 100% on R/A; Weight 89.36 kg; cm10 Height 5 ft. 5 in. ; Pain 10/10; 15:20 BP 127 / 77; Pulse 70; Resp 17; Pulse Ox 99% on R/A; rs5 12:10 Body Mass Index 32.78 (89.36 kg, 165.1 cm) cm10 12:10 Pain Scale: Adult cm10 Laceration: 15:20 Wound Repair of 4cm ( 1.6in ) subcutaneous laceration to dorsum of left hand. cp Irregularly shaped.. Distal neuro/vascular/tendon intact. Anesthesia: Wound infiltrated with 6 mls of Lido/Marcaine. Wound prep: Extensive cleansing by me, Wound irrigation by me. Skin closed with 3 4-0 Prolene using loose closure. Dressed with Bacitracin, 4x4's. Patient tolerated well. MDM: 12:15 Medical Screening Exam initiated cp 15:15 Data reviewed: vital signs, nurses notes, radiologic studies, plain films, and as a cp result, I will discharge patient. 15:15 Differential diagnosis: superficial laceration, tendon injury, vascular injury, rabies. cp I considered the following discharge prescriptions or medication management in the emergency department Medications were administered in the Emergency Department. See MAR. Counseling: I had a detailed discussion with the patient and/or guardian regarding the historical points, exam findings, and any diagnostic results supporting the discharge/admit diagnosis, radiology results, to return to the emergency department if symptoms worsen or persist or if there are any questions or concerns that arise at home. Special discussion: I discussed in detail with the patient the higher chance of wound infection based on his presenting history. ED course: VSS. Wound cleaned and closed as noted. F/u recommendation for DR Sears, hand surgery, given for wound check. RX for oral antibiotics given. Will discharge to home for continued monitoring. 02/01 12:10 Order name: XRAY Hand LEFT 3 View; Complete Time: 14:37 cp 02/01 14:07 Order name: Dressing - Wound; Complete Time: 14:44 cp 02/01 14:07 Order name: Gloves, Sterile; Complete Time: 14:44 cp 02/01 14:07 Order name: Setup Suture Tray; Complete Time: 14:45 cp 02/01 14:08 Order name: Wound Care: clean and irrigate wound; Complete Time: 14:44 cp 02/01 15:07 Order name: Wound dressing; Complete Time: 15:16 cp Administered Medications: 12:18 Drug: Hydrocodone-Acetaminophen PO (7.5 mg-325 mg) 1 tabs PO once; RASS on ADMIN: ss Combtv4, Very Agttd3, Agttd2, Rstlss1, AlertClm0, Drwsy-1, Lt Sdtn-2, Mod Sdtn-3, Dp Sdtn-4, UnArsble-5 Route: PO; 13:22 Follow up: Response: No adverse reaction; Pain is decreased rs5 14:10 Drug: Amoxicillin-Clavulanate PO 875 mg PO once Route: PO; rs5 15:05 Follow up: Response: No adverse reaction rs5 14:12 Drug: Ketorolac IM 30 mg IM once Route: IM; Site: left deltoid; rs5 15:01 Follow up: Response: No adverse reaction; Pain is decreased rs5 14:45 Drug: Lidocaine Infiltration (1 %) 5 ml 5 ml Infiltration once; to bedside {Note: adm rs5 by provider at bedside.} Volume: 5 ml; Route: Infiltration; 15:05 Follow up: Response: No adverse reaction rs5 14:45 Drug: Bupivacaine Infiltration (0.5 %) 10 ml 10 ml Infiltration once {Note: adm by rs5 provider at bedside .} Volume: 10 ml; Route: Infiltration; 15:01 Follow up: Response: No adverse reaction rs5 Disposition: 18:12 Co-signature as Attending Physician, Jason Chan MD I reviewed the patient's care rn provided by the Advanced Practice Provider and agree with the diagnosis and treatment plan. 02/02 14:30 Chart complete. cp Disposition Summary: 02/02/24 15:15 Discharge Ordered Notes: Location: Home cp Problem: new cp Symptoms: have improved cp Condition: Stable cp Diagnosis - Bitten by dog cp - Laceration without foreign body of left hand, initial encounter cp Followup: cp - With: Private Physician - When: 2 - 3 days - Reason: Wound Recheck, DR Randall Sears Discharge Instructions: - Discharge Summary Sheet cp - Animal Bite, Adult, [id number] cp - Laceration Care, Adult cp - Sutured Wound Care cp Forms: - Medication Reconciliation Form cp - Antibiotic Education cp - Prescription Opioid Use cp - Patient Portal Instructions cp - Leadership Thank You Letter cp Prescriptions: - Augmentin 875-125 mg Oral Tablet - take 1 tablet ORAL route every 12 hours for 10 days; 20 tablet; Refills: 0, cp Product Selection Permitted - Celebrex 200 mg Oral capsule - take 1 capsule ORAL route every 12 hours As needed take with food; 20 capsule; cp Refills: 0, Product Selection Permitted Signatures: Dispatcher [employer] EDMS Jason Chan MD MD rn Blanchard, Shelby, RN RN Sulaiman Tellez PA PA cp Maxwell Quintana RN RN rs5 Melissa Finney RN RN cm10 Corrections: (The following items were deleted from the chart) 02/01 12:13 12:12 PSHx: KNEE REEPLACEMENT; cm10 cm10 15:16 15:07 Splint - Volar Wrist Splint ordered. cp rs5 02/02 14:26 14:25 Wound Repair of 4cm ( 1.6in ) subcutaneous laceration to dorsum of left hand. cp Irregularly shaped.. Distal neuro/vascular/tendon intact. Anesthesia: Wound infiltrated with 6 mls of Lido/Marcaine. Wound prep: Extensive cleansing by me, Wound irrigation by me. Skin closed with 3 4-0 Prolene using loose closure. Dressed with Bacitracin, 4x4's. Patient tolerated well. cp
--- NOTE | 2024-02-02 15:15 | ER ---
Nurse's Notes [facility] Name: Vesna Ruelas Age: 58 yrs Sex: Female : 1965 Arrival Date: 02/02/2024 Time: 11:50 Bed 10 Private MD: Diagnosis: Bitten by dog;Laceration without foreign body of left hand, initial encounter Presentation: 02/01 12:10 Chief complaint: Patient states: GOT BIT BY HER DOG ON LEFT HAND. PT HAS NOTED cm10 LACERATION TO LEFT HAND. Coronavirus screen: Client denies travel out of the [place] in the last 14 days. Ebola Screen: Patient denies travel to an Ebola-affected area in the 21 days before illness onset. No symptoms or risks identified at this time. Initial Sepsis Screen: Does the patient meet any 2 criteria? No. Patient's initial sepsis screen is negative. Does the patient have a suspected source of infection? No. Patient's initial sepsis screen is negative. Risk Assessment: Do you want to hurt yourself or someone else? Patient reports no desire to harm self or others. Onset of symptoms was February 02, 2024. 12:10 Method Of Arrival: Ambulatory cm10 12:10 Acuity: SHIRA 4 cm10 Triage Assessment: 12:15 Bite description: bite sustained to left hand by a dog, animal information: Appearance: rs5 appeared well, is superficial, vaccination(s) is current, was sustained less than 30 minutes ago. Animal status: known, uncaptured, Animal control has been notified. 15:21 General: Appears in no apparent distress. uncomfortable. rs5 Historical: - Allergies: 12:12 No Known Allergies; cm10 - PMHx: 12:12 Irritable bowel syndrome; Hypertensive disorder; cm10 - PSHx: 12:12 KNEE REPLACEMENT; cm10 - Immunization history:: Adult Immunizations up to date, Last tetanus immunization: unknown. - Infectious Disease History:: CDIFF, . - Social history:: Smoking status: Patient denies any tobacco usage or history of. Screenin:26 [facility] ED Fall Risk Assessment (Adult) History of falling in the last 3 months, ss including since admission No falls in past 3 months (0 pts) Confusion or Disorientation No (0 pts) Intoxicated or Sedated No (0 pts) Impaired Gait No (0 pts) Mobility Assist Device Used No (0 pt) Altered Elimination No (0 pt) Score/Fall Risk Level 0 - 2 = Low Risk Oriented to surroundings, Maintained a safe environment. Abuse screen: Denies threats or abuse. Denies injuries from another. Nutritional screening: No deficits noted. Tuberculosis screening: Never had TB. Assessment: 12:26 General: Appears uncomfortable, Behavior is calm, cooperative. Neuro: Level of ss Consciousness is awake, alert, obeys commands, Oriented to person, place, time, situation, System Support Administrator are equal bilaterally. Respiratory: Airway is patent Respiratory effort is even, unlabored, Respiratory pattern is regular, symmetrical. Derm: Skin is intact, is healthy with good turgor, Skin is dry, Skin is pink, warm \T\ dry. normal. Injury Description: Laceration sustained to dorsum of left hand is jagged, 2.6 to 7.5 cm long, not bleeding, was sustained 30-60 minutes ago. no active bleeding noted at this time. 13:30 Reassessment: Patient and/or family updated on plan of care and expected duration. Pain rs5 level reassessed. Patient is alert, oriented x 3, equal unlabored respirations, skin warm/dry/pink. Pain: Complains of pain in left hand Pain currently is 3 out of 10 on a pain scale. 14:45 Reassessment: provider at bedside . rs5 14:45 Reassessment: Patient and/or family updated on plan of care and expected duration. Pain rs5 level reassessed. Patient is alert, oriented x 3, equal unlabored respirations, skin warm/dry/pink. 15:22 Reassessment: Patient and/or family updated on plan of care and expected duration. Pain rs5 level reassessed. Patient is alert, oriented x 3, equal unlabored respirations, skin warm/dry/pink. Vital Signs: 12:10 BP 120 / 73; Pulse 73; Resp 16; Temp 97.5; Pulse Ox 100% on R/A; Weight 89.36 kg; cm10 Height 5 ft. 5 in. ; Pain 10/10; 15:20 BP 127 / 77; Pulse 70; Resp 17; Pulse Ox 99% on R/A; rs5 12:10 Body Mass Index 32.78 (89.36 kg, 165.1 cm) cm10 12:10 Pain Scale: Adult cm10 ED Course: 11:51 Patient arrived in ED. mr 11:52 Sulaiman Gray PA is PHCP. cp 11:52 Jason Chan MD is Attending Physician. cp 12:12 Triage completed. cm10 12:13 Arm band placed on right wrist. Patient placed in an exam room. cm10 12:13 [employer] NOTIFIED OF DOG BITE. PER SANG, PT NEEDS TO GO BY [address] TO FILE A REPORT. 12:26 Patient has correct armband on for positive identification. Bed in low position. ss 12:26 Wound care: to laceration located on dorsum of left hand was cleaned with Hibiclens, ss irrigated with normal saline, dressed with 4X4s, Kerlix. 12:42 Maxwell Quintana, OUMOU is Primary Nurse. rs5 12:52 XRAY Hand LEFT 3 View In Process Unspecified. EDMS 15:22 Provided Education on: discharge instructions . rs5 15:30 No provider procedures requiring assistance completed. rs5 15:30 Patient did not have IV access during this emergency room visit. rs5 Administered Medications: 12:18 Drug: Hydrocodone-Acetaminophen PO (7.5 mg-325 mg) 1 tabs PO once; RASS on ADMIN: ss Combtv4, Very Agttd3, Agttd2, Rstlss1, AlertClm0, Drwsy-1, Lt Sdtn-2, Mod Sdtn-3, Dp Sdtn-4, UnArsble-5 Route: PO; 13:22 Follow up: Response: No adverse reaction; Pain is decreased rs5 14:10 Drug: Amoxicillin-Clavulanate PO 875 mg PO once Route: PO; rs5 15:05 Follow up: Response: No adverse reaction rs5 14:12 Drug: Ketorolac IM 30 mg IM once Route: IM; Site: left deltoid; rs5 15:01 Follow up: Response: No adverse reaction; Pain is decreased rs5 14:45 Drug: Lidocaine Infiltration (1 %) 5 ml 5 ml Infiltration once; to bedside {Note: adm rs5 by provider at bedside.} Volume: 5 ml; Route: Infiltration; 15:05 Follow up: Response: No adverse reaction rs5 14:45 Drug: Bupivacaine Infiltration (0.5 %) 10 ml 10 ml Infiltration once {Note: adm by rs5 provider at bedside .} Volume: 10 ml; Route: Infiltration; 15:01 Follow up: Response: No adverse reaction rs5 Medication: 12:26 VIS not applicable for this client. ss Outcome: 15:15 Discharge ordered by . cp 15:30 Discharged to home ambulatory, rs5 15:30 Condition: stable rs5 15:30 Discharge instructions given to patient, family, Instructed on discharge instructions, follow up and referral plans. medication usage, Demonstrated understanding of instructions, follow-up care, medications, Prescriptions given X 2, 15:34 Patient left the ED. rs5 Signatures: Dispatcher [employer] EDMS HectorHyun, Reg Reg mr Rina Pond RN RN ss Sulaiman Gray PA PA cp Sotelo, Ricky, OUMOU RN rs5 Melissa Finney RN RN cm10 Corrections: (The following items were deleted from the chart) 12:13 12:12 PSHx: KNEE REEPLACEMENT; cm10 cm10 17:34 17:01 BP 127 / 77; Pulse 70bpm; Resp 17bpm; Pulse Ox 99% RA; rs5 rs5
[2024-02-02 15:39] VITALS: BP 120/73; TEMP 97.5; O2SAT 100
== END 2024-02-02 15:34 | disposition home or self-care (01) ==
LOC: ER 11:50
DX: S61.412A Laceration without foreign body of left hand, initial encounter (principal); W54.0XXA Bitten by dog, initial encounter
CPT/HCPCS: 73130; 96372; 99284; 12042; J2003